=== PATIENT | male | born 2000 | race Caucasian/White ===

== ENCOUNTER 2020-11-29 14:29 | Emergency (ER) | payer OTHER, SELFPAY ==
[2020-11-29 14:49] VITALS: BP 136/80; PULSE 74; RESP 18; TEMP 36.1; O2SAT 100; BMI 19.2
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
== END 2020-11-29 17:45 | disposition home or self-care (01) ==
PROVIDERS: Emergency Provider Internal Medicine; PCP Internal Medicine
DX: Z48.02 Encounter for removal of sutures (principal); Z79.899 Other long term (current) drug therapy
CPT/HCPCS: 99283

== ENCOUNTER 2021-09-12 15:23 | Emergency (ER) | payer OTHER, SELFPAY ==
[2021-09-12 15:37] VITALS: BP 119/72; BP 124/82; PULSE 110; PULSE 87; RESP 16; TEMP 36.9; O2SAT 98; O2SAT 99
--- NOTE | 2021-09-12 15:41 | ED.GENADULT ---
HPI - General Adult General Chief complaint: General Medical Stated complaint: ? DVT INFECTION Time Seen by Provider: 09/12/21 15:41 Source: patient History of Present Illness HPI narrative: Patient IVDA user complaining of back pain leg pain for last 6 days IV drug user no fever no chills Related Data Previous Rx's Medication Instructions Recorded bacitracin 500 unit/gram topical 1 appl TOPICAL BID #30 g 11/29/20 ointment Allergies Allergy/AdvReac Type Severity Reaction Status Date / Time No Known Allergies Allergy Verified 09/14/21 09:02 [No Known Allergies*] Review of Systems Review of Systems: Yes all other systems are reviewed and are negative PMFSH Past Medical History Medical History No known health problems Social History Social History Alcohol intake: current Alcohol intake frequency: 3 or more drinks per day Alcohol type: hard liquor Patient Tobacco Use Status: Current everyday Tobacco user Smoked in Last 30 Days: Yes Use of substances other than those prescribed or required for medical reasons: Yes Substance Use Type: Amphetamines, Crack/Cocaine, Heroin and IV Drugs Advance Directives: No Advance Directives Information Provided: No Physical Exam ED Vital Signs: Vital Signs - 24 hr 09/12/21 15:37 Temperature 98.5 F Pulse Rate 87 Respiratory Rate 16 Blood Pressure 119/72 Pulse Oximetry 98 BMI result Body Mass Index 20.0 Appearance: Alert. Oriented X3. No acute distress. ENT: Pharynx normal. Oral Mucosa moist Neck: Normal inspection. Neck supple. CVS: Normal heart rate and rhythm. Pulses normal. Respiratory: No respiratory distress. Equal air entry bilateral, no wheezing/rales/rhonchi Abdomen: Soft and nontender. Bowel sounds are present, no mass palpable, no CVA tenderness Skin: Skin warm and dry. Normal skin color. Normal skin turgor. Extremities: No lower extremity edema. No calf tenderness Back: No focal percussion spinal tenderness diffuse paraspinal tenderness mostly on the left side good range of movement ambulation Neuro: Oriented X 3. No motor deficit. No sensory deficit.No cerebellar signs , cranial nerves II-XII intact Medical Decision Making MDM Narrative Medical decision making narrative: Patient refused lab left against medical advice Discharge Plan Discharge Clinical Impression: Musculoskeletal pain Patient Disposition: Left Against Medical Advice Prescriptions: No Action bacitracin 500 unit/gram ointment 1 appl topical BID Qty: 30 0RF Stand Alone Forms: Against Medical Advice Interventions: ED Discharge Assessment Last Done: 09/12/21 16:37 Discharge Date/Time: 09/12/21 16:37
== END 2021-09-12 16:37 | disposition left against medical advice (07) ==
LOC: HO.ED 16:34
PROVIDERS: Emergency Provider Internal Medicine
DX: M79.10 Myalgia, unspecified site (principal); F19.10 Other psychoactive substance abuse, uncomplicated; F17.200 Nicotine dependence, unspecified, uncomplicated
CPT/HCPCS: 99283

== ENCOUNTER 2021-10-28 15:32 | Emergency (ER) | payer OTHER, SELFPAY ==
[2021-10-28 16:00] VITALS: BP 131/76; PULSE 125; RESP 19; TEMP 36.6; O2SAT 98; BMI 19.9
--- NOTE | 2021-10-28 16:10 | ECG_ITS ---
Test Reason : TACHYCARDIA Blood Pressure : / mmHG Vent. Rate : 108 BPM Atrial Rate : 108 BPM P-R Int : 148 ms QRS Dur : 086 ms QT Int : 338 ms P-R-T Axes : 066 086 052 degrees QTc Int : 452 ms Sinus tachycardia Otherwise normal ECG No previous ECGs available Referred By: Generic ED Physician Electronically Signed By:Lonnie Velazquez
--- NOTE | 2021-10-28 17:41 | ED.GENADULT ---
HPI - General Adult General Chief complaint: General Medical Stated complaint: Right arm numbness Time Seen by Provider: 10/28/21 17:41 Source: patient Mode of arrival: ambulatory Limitations: no limitations History of Present Illness HPI narrative: Patient with history of IV cocaine use injected cocaine the right forearm earlier and notice numbness of the right forearm. Lasted for few minutes gone now no weakness no other complaints as such patient does not want any help to stop using cocaine was a detox 2 days ago. No chest pain at this time no shortness of breath Related Data Previous Rx's Medication Instructions Recorded bacitracin 500 unit/gram topical 1 appl TOPICAL BID #30 g 11/29/20 ointment Allergies Allergy/AdvReac Type Severity Reaction Status Date / Time No Known Allergies Allergy Verified 09/14/21 09:02 [No Known Allergies*] Review of Systems Review of Systems: Yes all other systems are reviewed and are negative [facility] Past Medical History Medical History No known health problems Social History Social History Alcohol intake: current Alcohol intake frequency: 3 or more drinks per day Alcohol type: hard liquor Patient Tobacco Use Status: Current everyday Tobacco user Substance Use Type: Amphetamines, Crack/Cocaine, Heroin and IV Drugs Advance Directives: No Advance Directives Information Provided: No Physical Exam ED Vital Signs: Vital Signs - 24 hr 10/28/21 16:00 Temperature 98 F Pulse Rate 125 H Respiratory Rate 19 Blood Pressure 131/76 Pulse Oximetry 98 BMI result Body Mass Index 19.9 Appearance: Alert. Oriented X3. No acute distress. ENT: Pharynx normal. Oral Mucosa moist Neck: Normal inspection. Neck supple. CVS: Normal heart rate and rhythm. Pulses normal. Respiratory: No respiratory distress. Equal air entry bilateral, Abdomen: Soft and nontender. Bowel sounds are present, Skin: Skin warm and dry. Normal skin color. Normal skin turgor. Extremities: No lower extremity edema. No calf tenderness IVDA gomez bilateral arms Neuro: Oriented X 3. No motor deficit. No sensory deficit.No cerebellar signs , cranial nerves II-XII intact deep tendon reflexes 2+ bilateral Medical Decision Making [facility] Narrative Medical decision making narrative: Patient nonspecific numbness of the right forearm on examination there was no sensory deficit or motor deficit deep tendon reflexes are normal no other active complaints at this time will discharge patient home patient does not want to go to detox at this time Discharge Plan Discharge Clinical Impression: Arm paresthesia, right, Cocaine abuse Patient Disposition: Home, Self-Care Instructions: Cocaine Abuse (ED), Paresthesia (ED) Additional Instructions: Stop using cocaine Follow with PCP Report to ER daphney weakness of the right arm Prescriptions: No Action bacitracin 500 unit/gram ointment 1 appl topical BID Qty: 30 0RF
[2021-10-28 17:55] VITALS: BP 129/81; PULSE 112; RESP 16; TEMP 37.2; O2SAT 100
== END 2021-10-28 19:00 | disposition home or self-care (01) ==
PROVIDERS: Emergency Provider Internal Medicine
DX: R20.0 Anesthesia of skin (principal); F14.10 Cocaine abuse, uncomplicated; F11.10 Opioid abuse, uncomplicated; F17.200 Nicotine dependence, unspecified, uncomplicated; Z71.6 Tobacco abuse counseling; Z71.51 Drug abuse counseling and surveillance of drug abuser
CPT/HCPCS: 93005; 99283

== ENCOUNTER 2021-11-26 21:56 | Emergency (ER) | payer OTHER, SELFPAY ==
[2021-11-26 22:10] VITALS: BP 127/73; PULSE 84; O2SAT 99
[2021-11-26 22:16] VITALS: BP 127/73; PULSE 84; O2SAT 99
== END 2021-11-26 22:30 | disposition left against medical advice (07) ==
LOC: HO.ED 22:21
PROVIDERS: Emergency Provider Emergency Medicine
DX: T50.901A Poisoning by unspecified drugs, medicaments and biological substances, accidental (unintentional), initial encounter (principal); Y92.9 Unspecified place or not applicable

== ENCOUNTER 2022-01-26 12:57 | Emergency (ER) | payer OTHER, SELFPAY ==
[2022-01-26 13:36] VITALS: BP 120/74; PULSE 77; RESP 18; TEMP 36.6; O2SAT 99; BMI 17.2
== END 2022-01-26 14:48 | disposition left against medical advice (07) ==
PROVIDERS: Emergency Provider Emergency Medicine
DX: L03.012 Cellulitis of left finger (principal)
CPT/HCPCS: 99281

== ENCOUNTER 2022-02-03 13:38 | Inpatient (IN) | payer OTHER, SELFPAY ==
--- NOTE | ~2022-02-03 | US_ITS ---
EXAMINATION: ULTRASOUND EXTREMITY NONVASCULAR CLINICAL INFORMATION: Redness and pain. Rule out abscess. COMPARISON: None TECHNIQUE: Grayscale and color imaging of the left anterior lower thigh using a linear transducer FINDINGS: There is edematous change of the soft tissues. No focal fluid collection/abscess is seen. US/US extremity nonvascular IMPRESSION: No abscess seen.
--- NOTE | ~2022-02-03 | XR_ITS ---
EXAMINATION: XR CHEST CLINICAL INFORMATION: Cough COMPARISON: None TECHNIQUE: Frontal view of the chest was obtained. FINDINGS: No significant abnormality is noted involving the heart, lungs, mediastinum, bony thorax or soft tissues. XR/XR chest 1V IMPRESSION: Unremarkable examination.
--- NOTE | ~2022-02-03 | CT_ITS ---
EXAMINATION: CT LEFT FEMUR WITH IV CONTRAST CLINICAL INFORMATION: Febrile, history of intravenous drug use. COMPARISON: Left lower extremity from earlier today. TECHNIQUE: Contiguous axial imaging was performed of the left lower extremity following the administration of 85 mL of Omnipaque 350 intravenously. Coronal and sagittal reformats were obtained at the acquisition workstation. FINDINGS: No evidence of acute fractures or malalignment. No cortical disruption or erosions to suspect osteomyelitis. No aggressive-appearing tortious lesion. Soft tissue swelling predominantly along the anterior surface of the distal thigh. No drainable collection or abscess formation. No unexpected radiopaque foreign bodies. No acute vascular abnormality. CT/CT femur LT w con IMPRESSION: 1. No drainable collection or abscess formation. 2. No unexpected radiopaque foreign bodies or subcutaneous air. 3. No acute osseous fractures or malalignment. 4. No cortical disruption or erosive bony changes to suspect osteomyelitis.
[2022-02-03 13:52] VITALS: BP 102/64; PULSE 68; O2SAT 93
[2022-02-03 14:30] VITALS: BP 107/66; PULSE 88; RESP 19; TEMP 37.7; O2SAT 98; BMI 17.9
[2022-02-03 21:38] VITALS: BP 113/66; PULSE 84; RESP 16; TEMP 38.4; O2SAT 100
--- NOTE | 2022-02-03 22:03 | ED.LOWEXIN ---
HPI - Extremity Injury (Lower) General Chief Complaint: Extremity Injury, Lower Stated Complaint: leg pain Time Seen by Provider: 02/03/22 21:59 Source: patient Mode of arrival: EMS History of Present Illness HPI Narrative: 21-year-old male, history of hep C and current IVDA user presents with onset anterior left thigh pain with redness since this morning he denies any trauma and states that he does woke up and it was like that. He otherwise denies any shortness of breath, chest pain / palpitations, back pain, GI or symptoms and denies any fever but states he has been having chills. Related Data Previous Rx's Medication Instructions Recorded bacitracin 500 unit/gram topical 1 appl topical BID #30 grams 11/29/20 ointment Allergies Allergy/AdvReac Type Severity Reaction Status Date / Time No Known Allergies Allergy Verified 09/14/21 09:02 [No Known Allergies*] Review of Systems Review of Systems: Pertinent positives and negatives as stated in HPI 10 point review of systems is otherwise negative. PMFSH Past Medical History Source: nursing notes reviewed Medical History No known health problems Social History Social History Alcohol intake: current Alcohol intake frequency: 3 or more drinks per day Alcohol type: hard liquor Patient Tobacco Use Status: Current everyday Tobacco user Substance Use Type: Amphetamines, Crack/Cocaine, Heroin and IV Drugs Advance Directives: No Advance Directives Information Provided: Yes Physical Exam Vital Signs: Vital Signs: Last Vital Signs Temp 101.1 F H 02/03/22 21:38 Pulse 84 02/03/22 21:38 Resp 16 02/03/22 21:38 BP 113/66 02/03/22 21:38 Pulse Ox 100 02/03/22 21:38 O2 Del Method 02/03/22 21:38 BMI result Body Mass Index 17.9 VITAL SIGNS: Reviewed. GENERAL: Unkempt, well nourished, in no acute distress. HEAD: Normocephalic/atraumatic EYES: PERRLA, EOMI EARS: Ext canals without abnormality OROPHARYNX: no oral lesions noted, posterior pharynx LUNGS: Normal breath sounds. No adventitious sounds or accessory muscle use. SpO2<100> CARDIOVASCULAR: Regular rate and rhythm without noted murmurs, no JVD or lower extremity edema. ABDOMEN: Soft, non-tender, non-distended with bowel sounds. BACK: There is no midline vertebral tenderness on palpation, no step-offs, no erythema MUSCULOSKELETAL: No tenderness, deformities, or effusions noted on gross inspection. EXTREMITIES: No cyanosis, clubbing or edema; LEFT LOWER EXTREMITY: 4x8 erythematous area without induration on the anterior aspect the left thigh without fluctuance, but highly painful; chronic track gomez noted to bilateral upper extremities, on viewing the feet there is evidence blistering associated with shoes and walking SKIN: Inspection of the skin reveals no rashes, ulcerations, jaundice, pallor, or petechiae. NEUROLOGIC: Alert and oriented x 4. Strength and sensation to light touch were grossly intact x 4. Course Course Course Narrative: 2200: 21-year-old male with history and clinical presentation suggestive of possible infection at the LEFT thigh but on review of ultrasound results there is no evidence of abscess. Lactic acid/blood cultures/antibiotics completed. Review of all investigations consistent with cellulitis, there were concerns for possible intramuscular abscess however on review of CT scan no evidence to further support this. There still remains the possibility endocarditis although murmur was not appreciated. I discussed the case with the inpatient hospitalist who accepts admission MDM - Extremity Injury (Lower) Lab Data Result diagrams: 02/03/22 22:23 02/03/22 22:23 Labs: Lab Results 02/03/22 02/03/22 02/03/22 Range/Units 22:13 22:23 22:23 WBC 20.9 H (4.8-10.8) X10*3/uL RBC 4.26 L (4.60-5.80) X10*6/uL Hgb 13.0 L (14.0-18.0) g/dl Hct 37.6 L (42.0-52.0) % MCV 88.3 (80.0-98.0) fL MCH 30.5 (27.0-33.0) pg MCHC 34.6 (31.0-36.0) g/dl RDW 12.3 (11.0-16.0) % Plt Count 338 (160-400) X10*3/uL MPV 9.3 L (9.4-12.4) fL Immature Gran % (Auto) 0.5 H (0.0-0.4) % Neut % (Auto) 69.7 (45-73) % Lymph % (Auto) 21.9 (20-40) % [place] % (Auto) 7.7 (2-11) % Eos % (Auto) 0.0 (0-4) % Baso % (Auto) 0.2 (0-2) % Lymph # (Auto) 4.6 (1.2-4.9) X10*3/uL [place] # (Auto) 1.6 H (0.1-1.2) X10*3/uL Eos # (Auto) 0.0 (0.0-0.4) X10*3/uL Baso # (Auto) 0.0 (0.0-0.2) X10*3/uL Abs Immat Gran (auto) 0.11 H (0.00-0.03) X10*3/uL Absolute Neuts (auto) 14.6 H (2.0-8.3) x10*3/uL Absolute Nucleated RBC 0.000 (0.0-0.012) X10*3/uL Nucleated RBC % (auto) 0.0 (0.0-0.2) /100WBC Smear Tech's Comments VERIFIED D-Dimer High Sensitivty NG/ML Sodium 133 L (135-145) mmol/L Potassium 3.6 (3.3-5.1) mmol/L Chloride 97 (96-108) mmol/L Carbon Dioxide 27 (22-29) mmol/L Anion Gap 13 (12-20) BUN 16 (9-16) mg/dL Creatinine 0.76 (0.5-1.4) mg/dL Estim Creat Clear Calc 121.2 Estimated GFR > 60 Random Glucose 113 (60-115) mg/dL Lactic Acid (0.5-2.0) mmol/L Calcium 8.6 (8.4-10.2) mg/dL Total Bilirubin 1.0 (0.0-1.0) mg/dL Direct Bilirubin 0.5 (0.0-0.5) mg/dL AST 29 (5-37) U/L ALT 44 H (0-40) U/L Alkaline Phosphatase 70 (39-117) U/L C-Reactive Protein 5.67 H (< or = 0.50) mg/dL Total Protein 6.9 (6.5-8.0) g/dL Albumin 3.8 (3.5-5.0) g/dL Lipase 51 (8-78) U/L Procalcitonin ng/mL COVID-19 (JROGE A) Negative (Negative) COVID-19 Clin Com See Note 02/03/22 02/03/22 02/03/22 Range/Units 22:23 22:23 22:23 WBC (4.8-10.8) X10*3/uL RBC (4.60-5.80) X10*6/uL Hgb (14.0-18.0) g/dl Hct (42.0-52.0) % MCV (80.0-98.0) fL MCH (27.0-33.0) pg MCHC (31.0-36.0) g/dl RDW (11.0-16.0) % Plt Count (160-400) X10*3/uL MPV (9.4-12.4) fL Immature Gran % (Auto) (0.0-0.4) % Neut % (Auto) (45-73) % Lymph % (Auto) (20-40) % [place] % (Auto) (2-11) % Eos % (Auto) (0-4) % Baso % (Auto) (0-2) % Lymph # (Auto) (1.2-4.9) X10*3/uL [place] # (Auto) (0.1-1.2) X10*3/uL Eos # (Auto) (0.0-0.4) X10*3/uL Baso # (Auto) (0.0-0.2) X10*3/uL Abs Immat Gran (auto) (0.00-0.03) X10*3/uL Absolute Neuts (auto) (2.0-8.3) x10*3/uL Absolute Nucleated RBC (0.0-0.012) X10*3/uL Nucleated RBC % (auto) (0.0-0.2) /100WBC Smear Tech's Comments D-Dimer High Sensitivty < 150 NG/ML Sodium (135-145) mmol/L Potassium (3.3-5.1) mmol/L Chloride (96-108) mmol/L Carbon Dioxide (22-29) mmol/L Anion Gap (12-20) BUN (9-16) mg/dL Creatinine (0.5-1.4) mg/dL Estim Creat Clear Calc Estimated GFR Random Glucose (60-115) mg/dL Lactic Acid 1.1 (0.5-2.0) mmol/L Calcium (8.4-10.2) mg/dL Total Bilirubin (0.0-1.0) mg/dL Direct Bilirubin (0.0-0.5) mg/dL AST (5-37) U/L ALT (0-40) U/L Alkaline Phosphatase (39-117) U/L C-Reactive Protein (< or = 0.50) mg/dL Total Protein (6.5-8.0) g/dL Albumin (3.5-5.0) g/dL Lipase (8-78) U/L Procalcitonin 0.16 ng/mL COVID-19 (JORGE A) (Negative) COVID-19 Clin Com Discharge Plan Discharge Clinical Impression: Cellulitis, Sepsis, Polysubstance use disorder Patient Disposition: Admitted As Inpatient Prescriptions: No Action bacitracin 500 unit/gram ointment 1 appl topical BID Qty: 30 0RF
[2022-02-03] MEDS: Acetaminophen 325 MG TABLET 975 MG PO (22:28)
[2022-02-03 22:32] LABS: Basophils Percent Auto 0.2 % (0-2); Hematocrit 37.6 % (42.0-52.0); Imm Gran Abs Auto 0.11 X10*3/uL (0.00-0.03); Imm Gran Pct Auto 0.5 % (0.0-0.4); Lymphocytes Absolute Auto 4.6 X10*3/uL (1.2-4.9); Lymphocytes Percent Auto 21.9 % (20-40); MANUAL DIFF FLAG SCAN; Mean Corpuscular HGB Conc 34.6 g/dl (31.0-36.0); Mean Corpuscular Hemoglobin 30.5 pg (27.0-33.0); Mean Corpuscular Volume 88.3 fL (80.0-98.0); Mean Platelet Volume 9.3 fL (9.4-12.4); Monocytes Absolute Auto 1.6 X10*3/uL (0.1-1.2); Monocytes Percent Auto 7.7 % (2-11); Neutrophils Absolute Auto 14.6 x10*3/uL (2.0-8.3); Neutrophils Percent Auto 69.7 % (45-73); Platelet Count 338 X10*3/uL (160-400); Red Blood Count 4.26 X10*6/uL (4.60-5.80); Red Cell Distribution Width 12.3 % (11.0-16.0); SCAN SMEAR FLAG 1; White Blood Count 20.9 X10*3/uL (4.8-10.8)
[2022-02-03 22:33] LABS: SLIDE REVIEW VERIFIED
[2022-02-03 22:41] LABS: Lactic Acid 1.1 mmol/L (0.5-2.0)
[2022-02-03 22:43] VITALS: TEMP 37.8
[2022-02-03 22:44] LABS: Anion Gap 13 (12-20); Blood Urea Nitrogen 16 mg/dL (9-16); Calcium 8.6 mg/dL (8.4-10.2); Carbon Dioxide 27 mmol/L (22-29); Chloride 97 mmol/L (96-108); Creatinine Clr Calc Pharmacy 121.2; Estimated Glomerular Filt Rate > 60; Glucose Random 113 mg/dL (60-115); Potassium 3.6 mmol/L (3.3-5.1); Sodium 133 mmol/L (135-145)
[2022-02-03 22:45] LABS: COVID-19 Test Negative (Negative)
[2022-02-03 22:52] LABS: D Dimer High Sensitivity < 150 NG/ML
[2022-02-03] MEDS: hydrOXYzine HCL 50 MG TABLET PO (23:04)
[2022-02-03] MEDS: Piperacillin Sodium/Tazobactam 3.375 GM in 0.9 % Sodium Chloride 50 ML IV (23:05)
[2022-02-03 23:31] LABS: Alanine Aminotransferase 44 U/L (0-40); Albumin Level 3.8 g/dL (3.5-5.0); Alkaline Phosphatase 70 U/L (39-117); Aspartate Amino Transferase 29 U/L (5-37); Bilirubin Direct 0.5 mg/dL (0.0-0.5); C Reactive Protein 5.67 mg/dL (< or = 0.50); Lipase 51 U/L (8-78); Total Protein 6.9 g/dL (6.5-8.0)
[2022-02-03 23:50] LABS: Procalcitonin 0.16 ng/mL
[2022-02-03] MEDS: iohexoL 350 MG/ML 100 ML INFUS..BTL 85 ML IV (23:50)
--- NOTE | 2022-02-04 01:05 | PM.IMHP ---
History of Present Illness Date of Service: 02/04/22 Chief Complaint: Swollen painful red leg 21-year-old male with past medical history of IV drug use who presents to the hospital with complaints left leg swelling and pain. Patient reports that started the day prior, progressively worsened with being pattern of time. Patient reports injecting drugs but not in his leg. Patient reports fever and chills, he reports that he is now withdrawing opioids, uses heroin last use last night. Patient denies any chest pain, no shortness of breath, no abdominal pain nausea or vomiting, no diarrhea constipation, no urinary symptoms and no lower extremity edema On arrival To patient hemodynamically stable but had a fever of 101. One Labs are significant for WBC count 20.9, hemoglobin 13 sodium of 133, otherwise unremarkable Given the history of IV drug use, leukocytosis and fever patient will be admitted for further management Review of Systems Review of Systems: Yes all other systems are reviewed and are negative [facility] Medical History IV drug abuse No known health problems Family History (Updated 02/04/22 @ 05:38 by Kimberly Rodriguez MD) Other No family history of coronary artery disease Surgical History (Updated 02/04/22 @ 05:38 by Kimberly Rodriguez MD) No pertinent past surgical history Social History Alcohol intake: current Alcohol intake frequency: 3 or more drinks per day Alcohol type: hard liquor Patient Tobacco Use Status: Current everyday Tobacco user Smoked in Last 30 Days: Yes Use of substances other than those prescribed or required for medical reasons: Yes Substance Use Type: Amphetamines, Crack/Cocaine, Heroin and IV Drugs Advance Directives: No Advance Directives Information Provided: Yes Meds Allergies Allergy/AdvReac Type Severity Reaction Status Date / Time No Known Allergies Allergy Verified 09/14/21 09:02 [No Known Allergies*] Physical Exam Vital Signs and Narrative: Vital Signs: Last Vital Signs Temp 101.1 F H 02/03/22 21:38 Pulse 84 02/03/22 21:38 Resp 16 02/03/22 21:38 BP 113/66 02/03/22 21:38 Pulse Ox 100 02/03/22 21:38 O2 Del Method 02/03/22 21:38 BMI result Body Mass Index 17.9 Const: General: cooperative and no acute distress Orientation/consciousness: patient oriented x3 Eyes: General: appearance normal, both eyes and all related structures Resp: Effort & Inspection: normal respiratory effort Auscultation: clear to auscultation bilaterally Cardio: Rate: regular rate Rhythm: regular rhythm GI: Palpation (GI): Soft to palpation Auscultation: normal bowel sounds Skin: Other: Left thigh just above the knee erythema, swollen, tenderness with warm Neuro: General: patient oriented x3 Cognition (Neuro): normal cognition Extrem: General: Yes normal to inspection and Yes no pedal edema Results Labs CBC and Chem 7: 02/03/22 22:23 02/03/22 22:23 Labs: Laboratory Results - last 24 hr 02/03/22 02/03/22 02/03/22 22:13 22:23 22:23 MCV 88.3 MCH 30.5 MCHC 34.6 RDW 12.3 Plt Count 338 MPV 9.3 L Immature Gran % (Auto) 0.5 H Neut % (Auto) 69.7 Lymph % (Auto) 21.9 [place] % (Auto) 7.7 Eos % (Auto) 0.0 Baso % (Auto) 0.2 Lymph # (Auto) 4.6 [place] # (Auto) 1.6 H Eos # (Auto) 0.0 Baso # (Auto) 0.0 Abs Immat Gran (auto) 0.11 H Absolute Neuts (auto) 14.6 H Absolute Nucleated RBC 0.000 Nucleated RBC % (auto) 0.0 Smear Tech's Comments VERIFIED D-Dimer High Sensitivty Anion Gap 13 Estim Creat Clear Calc 121.2 Estimated GFR > 60 Random Glucose 113 Lactic Acid Calcium 8.6 Total Bilirubin 1.0 Direct Bilirubin 0.5 AST 29 ALT 44 H Alkaline Phosphatase 70 C-Reactive Protein 5.67 H Total Protein 6.9 Albumin 3.8 Lipase 51 Procalcitonin COVID-19 (JORGE A) Negative COVID-19 Clin Com See Note 02/03/22 02/03/22 02/03/22 22:23 22:23 22:23 MCV MCH MCHC RDW Plt Count MPV Immature Gran % (Auto) Neut % (Auto) Lymph % (Auto) [place] % (Auto) Eos % (Auto) Baso % (Auto) Lymph # (Auto) [place] # (Auto) Eos # (Auto) Baso # (Auto) Abs Immat Gran (auto) Absolute Neuts (auto) Absolute Nucleated RBC Nucleated RBC % (auto) Smear Tech's Comments D-Dimer High Sensitivty < 150 Anion Gap Estim Creat Clear Calc Estimated GFR Random Glucose Lactic Acid 1.1 Calcium Total Bilirubin Direct Bilirubin AST ALT Alkaline Phosphatase C-Reactive Protein Total Protein Albumin Lipase Procalcitonin 0.16 COVID-19 (JORGE A) COVID-19 Clin Com Imaging Radiologist's Impressions: Impressions Extremity Ultrasound 02/03/22 15:11 IMPRESSION: No abscess seen. Chest X-Ray 02/03/22 22:35 IMPRESSION: Unremarkable examination. Femur CT 02/03/22 23:40 IMPRESSION: 1. No drainable collection or abscess formation. 2. No unexpected radiopaque foreign bodies or subcutaneous air. 3. No acute osseous fractures or malalignment. 4. No cortical disruption or erosive bony changes to suspect osteomyelitis. Assessment and Plan (1) Cellulitis: Status: Acute (2) Sepsis: Status: Acute (3) Polysubstance use disorder: Status: Acute Plan 21-year-old male with past medical history of IV drug use who presents to the hospital with complaints of left swollen leg found to have sepsis # sepsis - likely secondary to cellulitis -patient has leukocytosis, as well as febrile - lactic acid normal - share with other review antibiotics - follow cultures # cellulitis - as warmth, tenderness, erythema, edema, - will treat with IV antibiotic given the leukocytosis and fever - follow cultures # will substance abuse including alcohol as well as IV drug abuse - reports last drink was last night, he drinks multiple beers and multiple nebs daily - will start patient on phenobarb - folic acid and thiamine - clonidine p.r.n. for withdrawal symptoms DVT prophylaxis: Lovenox Given his history of IV drug use, and evidence of sepsis, patient will require minimal hospital stay of 2 nitro further management and monitoring Quality Stroke Does the patient have a stroke diagnosis?: No VTE Prior VTE?: No VTE Risk Level:: Medical - moderate - high VTE Device Contraindication: Treatment Not Indicated VTE Drug Contraindication: N/A - Med Ordered
[2022-02-04 01:22] VITALS: TEMP 36.6
[2022-02-04] MEDS: Thiamine HCL 100 MG TABLET PO ×2 (01:28→10:16)
[2022-02-04] MEDS: LORazepam 1 MG TABLET 2 MG PO (01:28)
[2022-02-04] MEDS: ceFAZolin Sodium/Dextrose,Iso 2 GM/50 ML PIGGYBACK IV ×3 (01:28→16:40)
[2022-02-04] MEDS: Folic Acid 1 MG TABLET PO ×2 (01:28→10:16)
[2022-02-04] MEDS: Lactated Ringers 1,000 ML 50 ML IVCONT ×2 (02:20→22:06)
--- NOTE | 2022-02-04 04:37 | PC.NURSE ---
pt sleeping comfortably on stetcher, equal chest rise and fall. NAD. will continue to monitor closely
[2022-02-04] MEDS: LORazepam 1 MG TABLET PO ×5 (04:57→22:37)
--- NOTE | 2022-02-04 04:57 | PC.NURSE ---
pt standing up at bedside unsteadily asking to use the BR. pt asked if was steady on his feet to which he said no. wheelchair obtained for transfer of pt from bed to BR. pt able to stand to void, and ended up voiding on the ground/in the toilet. pt c/o leg pain during transfer. pillow given to patient who is resting in bed at this time
[2022-02-04 05:40] LABS: Appearance Urine CLEAR; Color Urine YELLOW; Glucose Urine UA NEG (NEG); Leukocyte Esterase Urine NEG (NEG); Nitrite Urine NEG (NEG); Urine Blood NEG (NEG); Urine Ketones NEG (NEG); Urine Protein NEG (NEG-TRACE)
[2022-02-04 07:41] LABS: MANUAL DIFF FLAG NO
[2022-02-04 07:46] LABS: Basophils Percent Auto 0.2 % (0-2); Eosinophils Percent Auto 0.2 % (0-4); Hematocrit 36.7 % (42.0-52.0); Hemoglobin 12.3 g/dl (14.0-18.0); Imm Gran Abs Auto 0.09 X10*3/uL (0.00-0.03); Imm Gran Pct Auto 0.5 % (0.0-0.4); Lymphocytes Absolute Auto 2.6 X10*3/uL (1.2-4.9); Lymphocytes Percent Auto 14.3 % (20-40); Mean Corpuscular HGB Conc 33.5 g/dl (31.0-36.0); Mean Corpuscular Hemoglobin 29.9 pg (27.0-33.0); Mean Corpuscular Volume 89.3 fL (80.0-98.0); Mean Platelet Volume 9.3 fL (9.4-12.4); Monocytes Absolute Auto 1.5 X10*3/uL (0.1-1.2); Monocytes Percent Auto 8.1 % (2-11); Neutrophils Absolute Auto 13.8 x10*3/uL (2.0-8.3); Neutrophils Percent Auto 76.7 % (45-73); Platelet Count 316 X10*3/uL (160-400); Red Blood Count 4.11 X10*6/uL (4.60-5.80); Red Cell Distribution Width 12.5 % (11.0-16.0)
[2022-02-04 08:01] LABS: Anion Gap 11 (12-20); Blood Urea Nitrogen 13 mg/dL (9-16); Calcium 8.4 mg/dL (8.4-10.2); Carbon Dioxide 25 mmol/L (22-29); Chloride 101 mmol/L (96-108); Creatinine Clr Calc Pharmacy 129.7; Estimated Glomerular Filt Rate > 60; Glucose Random 117 mg/dL (60-115); Sodium 133 mmol/L (135-145)
[2022-02-04] MEDS: 0.9 % Sodium Chloride Flush 3 ML SYRINGE IVFLUSH ×2 (10:16→20:16)
--- NOTE | 2022-02-04 10:19 | PHA.MEDREC ---
Pharmacy Consult ? Medication Reconciliation Pharmacy has completed the medication reconciliation. Patient reports no medications at home. Diane Ferguson, DruD
[2022-02-04 10:26] LABS: Syphilis Screen Nonreactive (Nonreactive)
--- NOTE | 2022-02-04 11:28 | PM.EVENT ---
Event Note Date of Service: 02/04/22 Event Note: The patient was seen and evaluated this morning Complaining of pain in his left thigh WBCs trending down Continue IV antibiotics pending final culture Start Vancomycin along the Cefazolin Addiction team to evaluate the patient
--- NOTE | 2022-02-04 12:01 | PHA.PROG ---
Admission Date/Time: February 04, 2022 01:00 Indication: Sepsis due to cellulitis Weight in k.699 kg Adjusted body weight in K.48 kg [place] body weight in K kg Obesity Dosing Indication % IBW: N/A Serum Creatinine - Last 168 Hours 02/03/22 02/04/22 22:23 07:36 Creatinine 0.76 0.71 Estimated CrCl and GFR - Last 168 Hours 02/03/22 02/04/22 22:23 07:36 Estim Creat Clear Calc 121.2 129.7 Estimated GFR > 60 > 60 Vancomycin Loading Dose: 1500 mg (26 mg/kg) Current Vancomycin Dosing Regimen: 1250 mg Q12H Date and Time for next Vancomycin Level to be drawn: 02/05 @ 2130 Pharmacist Comments on Vancomycin Plan: Patient schedule to receive loading dose vancomycin 1500 mg in the ED 02/04 @ 1200 Maintenance dose vancomycin 1250 mg Q12H to begin 02/06 @ 0000. Expected AUC 520 with a trough of 14.1. Trough to be drawn prior to 4th dose Pharmacy to monitor renal function daily Diane Ferguson PharmD Vancomycin dosing will take advantage of [employer] as a clinical decision support tool that uses Bayesian modeling to calculate individual patient's pharmacokinetic parameters and forecast the patient's drug concentration time course with the target goal AUC 24 range of 400 - 600 mg/L/hr.
[2022-02-04] MEDS: methADONE HCl 20 MG/2 ML ORAL.CONC 15 MG PO (13:16)
[2022-02-04] MEDS: vancomycin HCL 1,500 MG in 0.9 % Sodium Chloride 500 ML 333.33 MG IV (13:16)
[2022-02-04 14:54] VITALS: BP 110/65; PULSE 74; RESP 14; TEMP 37.9; O2SAT 100
--- NOTE | 2022-02-04 15:35 | MHC.CM.PN ---
Meet with patient for CM assessment. See CM assessment for details. Homeless for ~6 months, [place] No PCP. Patient stating he wants to leave AMA if he can't get a strategic client executive that was reportedly taken away in the ER.
[2022-02-04 16:00] VITALS: BP 108/55; PULSE 75; RESP 18; TEMP 37.1; O2SAT 96
--- NOTE | 2022-02-04 17:13 | HO.ADDICTCON ---
History of Present Illness Date of Service: 02/04/2022 Chief Complaint: cellulitis Reason for Consult: OUD HPI Narrative: Patient is a 21 year old male currently medically admitted with cellulitis. Reporting IVDU--cpnsult requested to eval and treat. Patient seen X2 by this telegraphic typewriter operator chief and RSN. 1st time seen in main ED while he was awaiting room. Patient reporting that he recently started using heroin (in Nov, 2021). 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 He reports using btwn 5-10bags daily and drinks alcohol as well--unclear how much. At initial interview reporting withdrawal sx including chills, back and body aches, runny nose. Methadone 15mg ordered to address withdrawal sx. Patient seen in follow up 2 hours after medication received, he was now in room 350. Eyes closed, but answering questions, intitially stating he did in't know if he felt better, but upon further questioning, he acknowledged he was feeling better. Attempted to discuss plan for medications moving forward as methadone not appropriate option due to patient not having dx of OUD for at least a year. Challenging to engage patient in this as he was requesting this telegraphic typewriter operator chief find and bring up items that he believes he left in the ED. Review of Systems Constitutional: Reports as per HPI Diagnostics Vital Signs (24Hr): Vital Signs - 24 hr 02/03/22 21:38 02/03/22 22:43 02/04/22 01:22 Temperature 101.1 F H 100.1 F 97.9 F Pulse Rate 84 Respiratory Rate 16 Blood Pressure 113/66 Pulse Oximetry 100 Oxygen Delivery Method Room Air 02/04/22 14:54 02/04/22 16:00 Temperature 100.3 F 98.7 F Pulse Rate 74 75 Respiratory Rate 14 18 Blood Pressure 110/65 108/55 L Pulse Oximetry 100 96 Oxygen Delivery Method Room Air Room Air BMI result Body Mass Index 17.9 Labs Results: 02/04/22 07:36 02/04/22 07:36 Labs: Laboratory Results - last 48 hr 02/03/22 02/03/22 02/03/22 22:13 22:23 22:23 WBC 20.9 H RBC 4.26 L Hgb 13.0 L Hct 37.6 L MCV 88.3 MCH 30.5 MCHC 34.6 RDW 12.3 Plt Count 338 MPV 9.3 L Immature Gran % (Auto) 0.5 H Neut % (Auto) 69.7 Lymph % (Auto) 21.9 [place] % (Auto) 7.7 Eos % (Auto) 0.0 Baso % (Auto) 0.2 Lymph # (Auto) 4.6 [place] # (Auto) 1.6 H Eos # (Auto) 0.0 Baso # (Auto) 0.0 Abs Immat Gran (auto) 0.11 H Absolute Neuts (auto) 14.6 H Absolute Nucleated RBC 0.000 Nucleated RBC % (auto) 0.0 Smear Tech's Comments VERIFIED D-Dimer High Sensitivty Sodium 133 L Potassium 3.6 Chloride 97 Carbon Dioxide 27 Anion Gap 13 BUN 16 Creatinine 0.76 Estim Creat Clear Calc 121.2 Estimated GFR > 60 Random Glucose 113 Lactic Acid Calcium 8.6 Total Bilirubin 1.0 Direct Bilirubin 0.5 AST 29 ALT 44 H Alkaline Phosphatase 70 Total Creatine Kinase 101 C-Reactive Protein 5.67 H Total Protein 6.9 Albumin 3.8 Lipase 51 Procalcitonin Urine Color Urine Appearance Urine pH Ur Specific [place] Urine Protein Urine Glucose (UA) Urine Ketones Urine Blood Urine Nitrite Ur Leukocyte Esterase T.pallidum Ab (EIA) COVID-19 (JORGE A) Negative COVID-19 Clin Com See Note 02/03/22 02/03/22 02/03/22 22:23 22:23 22:23 WBC RBC Hgb Hct MCV MCH MCHC RDW Plt Count MPV Immature Gran % (Auto) Neut % (Auto) Lymph % (Auto) [place] % (Auto) Eos % (Auto) Baso % (Auto) Lymph # (Auto) [place] # (Auto) Eos # (Auto) Baso # (Auto) Abs Immat Gran (auto) Absolute Neuts (auto) Absolute Nucleated RBC Nucleated RBC % (auto) Smear Tech's Comments D-Dimer High Sensitivty < 150 Sodium Potassium Chloride Carbon Dioxide Anion Gap BUN Creatinine Estim Creat Clear Calc Estimated GFR Random Glucose Lactic Acid 1.1 Calcium Total Bilirubin Direct Bilirubin AST ALT Alkaline Phosphatase Total Creatine Kinase C-Reactive Protein Total Protein Albumin Lipase Procalcitonin Urine Color Urine Appearance Urine pH Ur Specific [place] Urine Protein Urine Glucose (UA) Urine Ketones Urine Blood Urine Nitrite Ur Leukocyte Esterase T.pallidum Ab (EIA) Nonreactive COVID-19 (JORGE A) COVID-19 Clin Com 02/03/22 02/04/22 02/04/22 22:23 05:34 07:36 WBC 18.0 H RBC 4.11 L Hgb 12.3 L Hct 36.7 L MCV 89.3 MCH 29.9 MCHC 33.5 RDW 12.5 Plt Count 316 MPV 9.3 L Immature Gran % (Auto) 0.5 H Neut % (Auto) 76.7 H Lymph % (Auto) 14.3 L [place] % (Auto) 8.1 Eos % (Auto) 0.2 Baso % (Auto) 0.2 Lymph # (Auto) 2.6 [place] # (Auto) 1.5 H Eos # (Auto) 0.0 Baso # (Auto) 0.0 Abs Immat Gran (auto) 0.09 H Absolute Neuts (auto) 13.8 H Absolute Nucleated RBC 0.000 Nucleated RBC % (auto) 0.0 Smear Tech's Comments D-Dimer High Sensitivty Sodium Potassium Chloride Carbon Dioxide Anion Gap BUN Creatinine Estim Creat Clear Calc Estimated GFR Random Glucose Lactic Acid Calcium Total Bilirubin Direct Bilirubin AST ALT Alkaline Phosphatase Total Creatine Kinase C-Reactive Protein Total Protein Albumin Lipase Procalcitonin 0.16 Urine Color YELLOW Urine Appearance CLEAR Urine pH 7.0 Ur Specific [place] 1.010 Urine Protein NEG Urine Glucose (UA) NEG Urine Ketones NEG Urine Blood NEG Urine Nitrite NEG Ur Leukocyte Esterase NEG T.pallidum Ab (EIA) COVID-19 (JORGE A) COVID-19 Clin Com 02/04/22 07:36 WBC RBC Hgb Hct MCV MCH MCHC RDW Plt Count MPV Immature Gran % (Auto) Neut % (Auto) Lymph % (Auto) [place] % (Auto) Eos % (Auto) Baso % (Auto) Lymph # (Auto) [place] # (Auto) Eos # (Auto) Baso # (Auto) Abs Immat Gran (auto) Absolute Neuts (auto) Absolute Nucleated RBC Nucleated RBC % (auto) Smear Tech's Comments D-Dimer High Sensitivty Sodium 133 L Potassium 4.0 Chloride 101 Carbon Dioxide 25 Anion Gap 11 L BUN 13 Creatinine 0.71 Estim Creat Clear Calc 129.7 Estimated GFR > 60 Random Glucose 117 H Lactic Acid Calcium 8.4 Total Bilirubin Direct Bilirubin AST ALT Alkaline Phosphatase Total Creatine Kinase C-Reactive Protein Total Protein Albumin Lipase Procalcitonin Urine Color Urine Appearance Urine pH Ur Specific [place] Urine Protein Urine Glucose (UA) Urine Ketones Urine Blood Urine Nitrite Ur Leukocyte Esterase T.pallidum Ab (EIA) COVID-19 (JORGE A) COVID-19 Clin Com Imaging Radiology Impressions: ITS Impressions Extremity Ultrasound 02/03/22 15:11 IMPRESSION: No abscess seen. Chest X-Ray 02/03/22 22:35 IMPRESSION: Unremarkable examination. Femur CT 02/03/22 23:40 IMPRESSION: 1. No drainable collection or abscess formation. 2. No unexpected radiopaque foreign bodies or subcutaneous air. 3. No acute osseous fractures or malalignment. 4. No cortical disruption or erosive bony changes to suspect osteomyelitis. Mental Status Exam Mental Status Exam Patient Appearance: Unkempt Level of Consciousness: Drowsy Judgement: Fair Medications Medications Current Medications Acetaminophen (Acetaminophen 325 Mg Tablet) 650 mg PO Q6H PRN PRN Reason: Pain, Mild (Pain Scale 1-3) Clonidine HCl (Clonidine Hcl 0.1 Mg Tablet) 0.1 mg PO TID PRN; Protocol PRN Reason: withdrawal symptoms Docusate Sodium (Docusate Sodium 100 Mg Capsule) 100 mg PO DAILY PRN PRN Reason: Constipation Enoxaparin Sodium (Enoxaparin Sodium 40 Mg/0.4 Ml Syringe) 40 mg SUBCUT Q24H [facility] Last Admin: 02/04/22 01:37 Dose: Not Given Folic Acid (Folic Acid 1 Mg Tablet) 1 mg PO DAILY [facility] Last Admin: 02/04/22 10:16 Dose: 1 mg Cefazolin Sodium/Dextrose (Ancef) 2 gm in 50 mls @ 100 mls/hr IV Q8H [facility] Last Admin: 02/04/22 16:40 Dose: 100 mls/hr Lactated Ringer's (Lr) 1,000 mls @ 50 mls/hr IVCONT .Q20H [facility] Last Admin: 02/04/22 02:20 Dose: 50 mls/hr Vancomycin HCl 1,250 mg/ (Sodium Chloride) 250 mls @ 166.667 mls/hr IV Q12H [facility] Lorazepam (Lorazepam 1 Mg Tablet) 1 mg PO Q4H [facility]; Taper Stop: 02/08/22 03:14 Last Admin: 02/04/22 16:39 Dose: 1 mg Lorazepam (Lorazepam 1 Mg Tablet) 1 mg PO Q4H PRN PRN Reason: Breakthrough alcohol withdrawa Stop: 02/08/22 00:58 Ondansetron HCl (Ondansetron Hcl 4 Mg/2 Ml Vial) 4 mg IVPUSH Q8H PRN PRN Reason: Nausea and Vomiting Pharmacy Consult (Consult Rx Vancomycin Dosing) 1 each MISCELLANE DAILY PRN PRN Reason: Consult order Sodium Chloride (0.9 % Sodium Chloride Flush 3 Ml Syringe) 3 ml IVFLUSH QSHIFT [facility] Last Admin: 02/04/22 10:16 Dose: 3 ml Thiamine HCl (Thiamine Hcl 100 Mg Tablet) 100 mg PO DAILY [facility] Last Admin: 02/04/22 10:16 Dose: 100 mg Allergies Allergies Allergy/AdvReac Type Severity Reaction Status Date / Time No Known Allergies Allergy Verified 09/14/21 09:02 [No Known Allergies*] Assessment & Plan Assessment & Plan (1) Opioid withdrawal: Status: Acute Code(s): F11.93 - Opioid use, unspecified with withdrawal Assessment and Plan: based on patients very recent start of opioid use, unclear if he will require more methadone overnight for sx. If necessary, can receive another 5mg for withdrawal sx comfort medications already ordered 15mg methadone AM and reassess ongoing plan--including ATS admission (if cultures negative) or transition to suboxone I spent ___50___ minutes with the patient and/or on the patient floor today, greater than?50% of which was spent counseling/coordinating care. PMFSH Past Medical History Medical History (Updated 02/04/22 @ 17:24 by Irene Oliveira CNP) IV drug abuse No known health problems Family History Family History (Updated 02/04/22 @ 05:38 by Kimberly Rodriguez MD) Other No family history of coronary artery disease Surgical History Surgical History (Updated 02/04/22 @ 05:38 by Kimberly Rodriguez MD) No pertinent past surgical history Social History Social History Alcohol intake: current Alcohol intake frequency: 3 or more drinks per day Alcohol type: hard liquor Patient Tobacco Use Status: Current everyday Tobacco user Substance Use Type: Amphetamines, Crack/Cocaine, Heroin and IV Drugs service: No Current occupational status: unemployed
[2022-02-04 20:00] VITALS: BP 124/88; PULSE 83; RESP 20; TEMP 37.1; O2SAT 95
[2022-02-04 23:53] VITALS: BP 110/57; PULSE 64; RESP 17; TEMP 37.6; O2SAT 99
[2022-02-05] MEDS: vancomycin HCL 1,250 MG in 0.9 % Sodium Chloride 250 ML 166.67 MG IV (01:00)
[2022-02-05] MEDS: ceFAZolin Sodium/Dextrose,Iso 2 GM/50 ML PIGGYBACK IV ×2 (02:48→09:25)
[2022-02-05] MEDS: LORazepam 1 MG TABLET PO ×2 (02:49→07:36)
[2022-02-05 04:00] VITALS: BP 100/59; PULSE 71; RESP 17; TEMP 37.2; O2SAT 98
[2022-02-05 06:27] LABS: Hematocrit 36.4 % (42.0-52.0); Hemoglobin 12.1 g/dl (14.0-18.0); Mean Corpuscular HGB Conc 33.2 g/dl (31.0-36.0); Mean Corpuscular Hemoglobin 30.1 pg (27.0-33.0); Mean Corpuscular Volume 90.5 fL (80.0-98.0); Mean Platelet Volume 9.9 fL (9.4-12.4); Platelet Count 308 X10*3/uL (160-400); Red Blood Count 4.02 X10*6/uL (4.60-5.80); Red Cell Distribution Width 12.4 % (11.0-16.0); White Blood Count 14.9 X10*3/uL (4.8-10.8)
[2022-02-05 06:48] LABS: Anion Gap 10 (12-20); Blood Urea Nitrogen 8 mg/dL (9-16); Calcium 8.2 mg/dL (8.4-10.2); Carbon Dioxide 25 mmol/L (22-29); Chloride 102 mmol/L (96-108); Creatinine Clr Calc Pharmacy 129.7; Estimated Glomerular Filt Rate > 60; Glucose Random 99 mg/dL (60-115); Potassium 4.2 mmol/L (3.3-5.1); Sodium 133 mmol/L (135-145)
[2022-02-05] MEDS: Folic Acid 1 MG TABLET PO (07:36)
[2022-02-05] MEDS: Thiamine HCL 100 MG TABLET PO (07:36)
[2022-02-05] MEDS: methADONE HCl 20 MG/2 ML ORAL.CONC 15 MG PO (07:37)
[2022-02-05 11:23] VITALS: BP 125/71; PULSE 79; RESP 16; TEMP 37.3; O2SAT 100
--- NOTE | 2022-02-05 11:25 | HO.PM.IMPN ---
Subjective Subjective Date of Service: 02/05/22 Interval History: the patient was seen and evaluated this morning Laying in bed, feels mild improvement since yesterday Psy pain has improved with decreased erythema Denies any fever, chills or shortness of breath No reported other overnight events. Systemic review: No fever, chills or weakness No chest pain, palpitation No shortness of breath or coughing No abdominal pain, nausea or vomiting No urinary symptoms Left thigh rash and pain Physical Exam Vital Signs: Vital Signs: Last Vital Signs Temp 98.9 F 02/05/22 04:00 Pulse 71 02/05/22 04:00 Resp 17 02/05/22 04:00 BP 100/59 L 02/05/22 04:00 Pulse Ox 98 02/05/22 04:00 O2 Del Method 02/05/22 04:00 BMI result Body Mass Index 17.9 Const: Other: Constitutional : Alert, oriented, not in distress Neck : Normal inspection, Supple Cardiovascular : RRR, no JVP, no lower extremity edema Respiratory : fair bilateral air entry, no crackles, wheezes or rhonchi Gastrointestinal: soft, lax, Normal bowel sounds, Non tender Skin : Warm, Dry, poor hygiene, left lower thigh erythema tenderness with palpation Neurological : Alert & oriented x3, No focal deficit , CN 2-12 within normal Objective Data Active Medications Acetaminophen (Acetaminophen 325 Mg Tablet) 650 mg PO Q6H PRN PRN Reason: Pain, Mild (Pain Scale 1-3) Clonidine HCl (Clonidine Hcl 0.1 Mg Tablet) 0.1 mg PO TID PRN; Protocol PRN Reason: withdrawal symptoms Docusate Sodium (Docusate Sodium 100 Mg Capsule) 100 mg PO DAILY PRN PRN Reason: Constipation Enoxaparin Sodium (Enoxaparin Sodium 40 Mg/0.4 Ml Syringe) 40 mg SUBCUT Q24H [facility] Last Admin: 02/05/22 02:22 Dose: Not Given Documented By: ANTHNOY Non-Admin Reason: Patient Refused Folic Acid (Folic Acid 1 Mg Tablet) 1 mg PO DAILY [facility] Last Admin: 02/05/22 07:36 Dose: 1 mg Documented By: JOSIAS Cefazolin Sodium/Dextrose (Ancef) 2 gm in 50 mls @ 100 mls/hr IV Q8H [facility] Last Admin: 02/05/22 09:25 Dose: 100 mls/hr Documented By: JOSIAS Lactated Ringer's (Lr) 1,000 mls @ 50 mls/hr IVCONT .Q20H [facility] Last Admin: 02/04/22 22:06 Dose: 50 mls/hr Documented By: COLOEula Vancomycin HCl 1,250 mg/ (Sodium Chloride) 250 mls @ 166.667 mls/hr IV Q12H [facility] Last Infusion: 02/05/22 02:53 Dose: 0 mls/hr Documented By: ANTHONY Lorazepam (Lorazepam 1 Mg Tablet) 1 mg PO Q6H [facility]; Taper Stop: 02/08/22 03:14 Last Admin: 02/05/22 07:36 Dose: 1 mg Documented By: JOSIAS Lorazepam (Lorazepam 1 Mg Tablet) 1 mg PO Q4H PRN PRN Reason: Breakthrough alcohol withdrawa Stop: 02/08/22 00:58 Ondansetron HCl (Ondansetron Hcl 4 Mg/2 Ml Vial) 4 mg IVPUSH Q8H PRN PRN Reason: Nausea and Vomiting Pharmacy Consult (Consult Rx Vancomycin Dosing) 1 each MISCELLANE DAILY PRN PRN Reason: Consult order Sodium Chloride (0.9 % Sodium Chloride Flush 3 Ml Syringe) 3 ml IVFLUSH QSHIFT [facility] Last Admin: 02/05/22 07:40 Dose: Not Given Documented By: JOSIAS Non-Admin Reason: No Access Thiamine HCl (Thiamine Hcl 100 Mg Tablet) 100 mg PO DAILY [facility] Last Admin: 02/05/22 07:36 Dose: 100 mg Documented By: JOSIAS Labs CBC & Chem 7: 02/05/22 05:15 02/05/22 05:15 Labs: Laboratory Results - last 24 hr 02/05/22 02/05/22 02/05/22 05:15 05:15 05:15 MCV 90.5 MCH 30.1 MCHC 33.2 RDW 12.4 Plt Count 308 MPV 9.9 Absolute Nucleated RBC 0.000 Nucleated RBC % (auto) 0.0 Anion Gap 10 L Estim Creat Clear Calc Cancelled 129.7 Estimated GFR Cancelled > 60 Random Glucose 99 Calcium 8.2 L Microbiology Microbiology Results: Microbiology 02/03/22 22:23 Blood Culture - Final Blood - Venous Bacillus species 02/03/22 22:13 Blood Culture - Preliminary Blood - Venous No growth after 24 hours. Assessment and Plan (1) Opioid withdrawal: Status: Acute (2) Cellulitis: Status: Acute (3) Sepsis: Status: Acute (4) Polysubstance use disorder: Status: Acute Plan 21-year-old male with past medical history of IV drug use who presents to the hospital with complaints of left swollen leg found to have sepsis sepsis, resolved secondary to cellulitis 1 set of blood cultures positive for Gram-positive rods, likely contaminant, pending final sensitivity continue IV vancomycin and cefazolin pending ID evaluation history of substance abuse , alcohol and IVDU continue phenobarb folic acid and thiamine clonidine p.r.n. for withdrawal symptoms addiction team input appreciated , start 50 mg methadone in the morning and possible ATS admission DVT prophylaxis: Lovenox Given his history of IV drug use, and evidence of sepsis, patient will require Overnight hospital stay for further management to prevent decompensation into severe sepsis Quality Stroke Does the patient have a stroke diagnosis?: No VTE Prior VTE?: No VTE Risk Level:: Medical - moderate - high VTE Device Contraindication: Treatment Not Indicated VTE Drug Contraindication: N/A - Med Ordered
[2022-02-05 11:57] VITALS: BMI 19.0
[2022-02-05] MEDS: vancomycin HCL 1,250 MG in 0.9 % Sodium Chloride 250 ML 166.37 MG IV (12:02)
--- NOTE | 2022-02-05 13:54 | PM.EVENT ---
Event Note Date of Service: 02/05/22 Event Note: Discharge summary Discharge diagnosis Sepsis, cellulitis Opioid withdrawal and abuse The patient was admitted for treatment of left thigh cellulitis. Found to be septic on admission. Blood cultures growing g positive rods which could be contaminant but not finalized yet. Treated with IV antibiotics of vancomycin and Zosyn. He decided to leave the hospital against medical advice. I explained to him that oral antibiotics might not be the best for his current condition as culture still pending but he insisted on leaving. Will Prescribed doxycycline and Ceftin and explained to him the need to come back to the emergency if he feels sick at any point.
--- NOTE | 2022-02-05 15:08 | HO.ADDICTPRO ---
Subjective Subjective Date of Service: 02/05/22 Reason For Visit: cellulitis Interim History: Patient seen in follow-up this morning with recovery support nurse. Patient lying in bed, awake but with eyes closed. Required redirection by this writer producer as he was repeatedly asking to order his lunch and expressing his frustration with not being able to do so in that very moment. This writer producer attempted to gather additional history regarding substance use, patient minimally participating. Review of Systems Constitutional: Reports as per HPI Mental Status Exam Mental Status Exam Patient Appearance: Unkempt Level of Consciousness: Awake Mood Description: Blunted (irritable ) Judgement: Fair Diagnostics Vital Signs (24Hr): Vital Signs - 24 hr 02/04/22 16:00 02/04/22 20:00 02/04/22 23:53 Temperature 98.7 F 98.8 F 99.6 F Pulse Rate 75 83 64 Respiratory Rate 18 20 17 Blood Pressure 108/55 L 124/88 110/57 L Pulse Oximetry 96 95 99 Oxygen Delivery Method Room Air Room Air Room Air 02/05/22 04:00 02/05/22 11:23 Temperature 98.9 F 99.1 F Pulse Rate 71 79 Respiratory Rate 17 16 Blood Pressure 100/59 L 125/71 Pulse Oximetry 98 100 Oxygen Delivery Method Room Air Room Air BMI result Body Mass Index 19.0 Labs Results: 02/05/22 05:15 02/05/22 05:15 Labs: Laboratory Results - last 48 hr 02/03/22 02/03/22 02/03/22 22:13 22:23 22:23 WBC 20.9 H RBC 4.26 L Hgb 13.0 L Hct 37.6 L MCV 88.3 MCH 30.5 MCHC 34.6 RDW 12.3 Plt Count 338 MPV 9.3 L Immature Gran % (Auto) 0.5 H Neut % (Auto) 69.7 Lymph % (Auto) 21.9 [place] % (Auto) 7.7 Eos % (Auto) 0.0 Baso % (Auto) 0.2 Lymph # (Auto) 4.6 [place] # (Auto) 1.6 H Eos # (Auto) 0.0 Baso # (Auto) 0.0 Abs Immat Gran (auto) 0.11 H Absolute Neuts (auto) 14.6 H Absolute Nucleated RBC 0.000 Nucleated RBC % (auto) 0.0 Smear Tech's Comments VERIFIED D-Dimer High Sensitivty Sodium 133 L Potassium 3.6 Chloride 97 Carbon Dioxide 27 Anion Gap 13 BUN 16 Creatinine 0.76 Estim Creat Clear Calc 121.2 Estimated GFR > 60 Random Glucose 113 Lactic Acid Calcium 8.6 Total Bilirubin 1.0 Direct Bilirubin 0.5 AST 29 ALT 44 H Alkaline Phosphatase 70 Total Creatine Kinase 101 C-Reactive Protein 5.67 H Total Protein 6.9 Albumin 3.8 Lipase 51 Procalcitonin Urine Color Urine Appearance Urine pH Ur Specific [place] Urine Protein Urine Glucose (UA) Urine Ketones Urine Blood Urine Nitrite Ur Leukocyte Esterase T.pallidum Ab (EIA) COVID-19 (JORGE A) Negative COVID-19 ncyclo Com See Note 02/03/22 02/03/22 02/03/22 22:23 22:23 22:23 WBC RBC Hgb Hct MCV MCH MCHC RDW Plt Count MPV Immature Gran % (Auto) Neut % (Auto) Lymph % (Auto) [place] % (Auto) Eos % (Auto) Baso % (Auto) Lymph # (Auto) [place] # (Auto) Eos # (Auto) Baso # (Auto) Abs Immat Gran (auto) Absolute Neuts (auto) Absolute Nucleated RBC Nucleated RBC % (auto) Smear Tech's Comments D-Dimer High Sensitivty < 150 Sodium Potassium Chloride Carbon Dioxide Anion Gap BUN Creatinine Estim Creat Clear Calc Estimated GFR Random Glucose Lactic Acid 1.1 Calcium Total Bilirubin Direct Bilirubin AST ALT Alkaline Phosphatase Total Creatine Kinase C-Reactive Protein Total Protein Albumin Lipase Procalcitonin Urine Color Urine Appearance Urine pH Ur Specific [place] Urine Protein Urine Glucose (UA) Urine Ketones Urine Blood Urine Nitrite Ur Leukocyte Esterase T.pallidum Ab (EIA) Nonreactive COVID-19 (JORGE A) COVID-19 [employer] 02/03/22 02/04/22 02/04/22 22:23 05:34 07:36 WBC 18.0 H RBC 4.11 L Hgb 12.3 L Hct 36.7 L MCV 89.3 MCH 29.9 MCHC 33.5 RDW 12.5 Plt Count 316 MPV 9.3 L Immature Gran % (Auto) 0.5 H Neut % (Auto) 76.7 H Lymph % (Auto) 14.3 L [place] % (Auto) 8.1 Eos % (Auto) 0.2 Baso % (Auto) 0.2 Lymph # (Auto) 2.6 [place] # (Auto) 1.5 H Eos # (Auto) 0.0 Baso # (Auto) 0.0 Abs Immat Gran (auto) 0.09 H Absolute Neuts (auto) 13.8 H Absolute Nucleated RBC 0.000 Nucleated RBC % (auto) 0.0 Smear Tech's Comments D-Dimer High Sensitivty Sodium Potassium Chloride Carbon Dioxide Anion Gap BUN Creatinine Estim Creat Clear Calc Estimated GFR Random Glucose Lactic Acid Calcium Total Bilirubin Direct Bilirubin AST ALT Alkaline Phosphatase Total Creatine Kinase C-Reactive Protein Total Protein Albumin Lipase Procalcitonin 0.16 Urine Color YELLOW Urine Appearance CLEAR Urine pH 7.0 Ur Specific [place] 1.010 Urine Protein NEG Urine Glucose (UA) NEG Urine Ketones NEG Urine Blood NEG Urine Nitrite NEG Ur Leukocyte Esterase NEG T.pallidum Ab (EIA) COVID-19 (JORGE A) COVID-[place] 02/04/22 02/05/22 02/05/22 07:36 05:15 05:15 WBC 14.9 H RBC 4.02 L Hgb 12.1 L Hct 36.4 L MCV 90.5 MCH 30.1 MCHC 33.2 RDW 12.4 Plt Count 308 MPV 9.9 Immature Gran % (Auto) Neut % (Auto) Lymph % (Auto) [place] % (Auto) Eos % (Auto) Baso % (Auto) Lymph # (Auto) [place] # (Auto) Eos # (Auto) Baso # (Auto) Abs Immat Gran (auto) Absolute Neuts (auto) Absolute Nucleated RBC 0.000 Nucleated RBC % (auto) 0.0 Smear Tech's Comments D-Dimer High Sensitivty Sodium 133 L Potassium 4.0 Chloride 101 Carbon Dioxide 25 Anion Gap 11 L BUN 13 Creatinine 0.71 Cancelled Estim Creat Clear Calc 129.7 Cancelled Estimated GFR > 60 Cancelled Random Glucose 117 H Lactic Acid Calcium 8.4 Total Bilirubin Direct Bilirubin AST ALT Alkaline Phosphatase Total Creatine Kinase C-Reactive Protein Total Protein Albumin Lipase Procalcitonin Urine Color Urine Appearance Urine pH Ur Specific [place] Urine Protein Urine Glucose (UA) Urine Ketones Urine Blood Urine Nitrite Ur Leukocyte Esterase T.pallidum Ab (EIA) COVID-19 (JORGE A) COVID-19 [employer] 02/05/22 05:15 WBC RBC Hgb Hct MCV MCH MCHC RDW Plt Count MPV Immature Gran % (Auto) Neut % (Auto) Lymph % (Auto) [place] % (Auto) Eos % (Auto) Baso % (Auto) Lymph # (Auto) [place] # (Auto) Eos # (Auto) Baso # (Auto) Abs Immat Gran (auto) Absolute Neuts (auto) Absolute Nucleated RBC Nucleated RBC % (auto) Smear Tech's Comments D-Dimer High Sensitivty Sodium 133 L Potassium 4.2 Chloride 102 Carbon Dioxide 25 Anion Gap 10 L BUN 8 L Creatinine 0.71 Estim Creat Clear Calc 129.7 Estimated GFR > 60 Random Glucose 99 Lactic Acid Calcium 8.2 L Total Bilirubin Direct Bilirubin AST ALT Alkaline Phosphatase Total Creatine Kinase C-Reactive Protein Total Protein Albumin Lipase Procalcitonin Urine Color Urine Appearance Urine pH Ur Specific [place] Urine Protein Urine Glucose (UA) Urine Ketones Urine Blood Urine Nitrite Ur Leukocyte Esterase T.pallidum Ab (EIA) COVID-19 (JORGE A) COVID-19 Clin Com Imaging Radiology Impressions: ITS Impressions Extremity Ultrasound 02/03/22 15:11 IMPRESSION: No abscess seen. Chest X-Ray 02/03/22 22:35 IMPRESSION: Unremarkable examination. Femur CT 02/03/22 23:40 IMPRESSION: 1. No drainable collection or abscess formation. 2. No unexpected radiopaque foreign bodies or subcutaneous air. 3. No acute osseous fractures or malalignment. 4. No cortical disruption or erosive bony changes to suspect osteomyelitis. Medications Allergies Allergies Allergy/AdvReac Type Severity Reaction Status Date / Time No Known Allergies Allergy Verified 09/14/21 09:02 [No Known Allergies*] Assessment & Plan Assessment & Plan (1) Opioid withdrawal: Status: Acute Code(s): F11.93 - Opioid use, unspecified with withdrawal Assessment and Plan: at time of documentation, patient had self initiated discharge no follow up indicated I spent ___15___ minutes with the patient and/or on the patient floor today, greater than?50% of which was spent counseling/coordinating care.
== END 2022-02-05 14:06 | disposition left against medical advice (07) | DRG 720 ==
LOC: HO.ED 02-04 00:48 → HO.EDOVER 02-04 01:17 → HO.S3 02-04 11:59
PROVIDERS: Physician Assistant Medical; Admitting Provider Internal Medicine; Emergency Provider Student in an Organized Health Care Education/Training Program; PCP Internal Medicine; Visit Provider Student in an Organized Health Care Education/Training Program
DX: A41.9 Sepsis, unspecified organism (principal); L03.116 Cellulitis of left lower limb; D72.829 Elevated white blood cell count, unspecified; F10.10 Alcohol abuse, uncomplicated; F11.13 Opioid abuse with withdrawal; Z20.822 Contact with and (suspected) exposure to COVID-19; Z86.19 Personal history of other infectious and parasitic diseases
CPT/HCPCS: 36415; 71045; 73701; 76882; 80048; 80076; 81003; 82550; 83605; 83690; 84145; 85025; 85027; 85379; 86140; 86780; 87040; 87635; 96365; 99285; J0690; J2543; J3370; Q9967

== ENCOUNTER 2023-10-31 23:07 | Emergency (ER) | payer OTHER, SELFPAY ==
[2023-10-31 23:34] VITALS: BP 111/64; PULSE 79; RESP 18; TEMP 37; O2SAT 95; BMI 21.3
[2023-11-01 00:08] VITALS: BP 124/58; PULSE 63; RESP 16; O2SAT 96
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
--- OUTSIDE RECORDS SUMMARY | 2023-11-01 00:45 | XMS_ITS | Continuity of Care Document ---
Author Organization [facility] Address [address] [place] [address]- Care Team Providers Care Sales Representative Health Insurance Name Role Phone Not on Staff, PCP Primary Care Physician Unavail able [place] [facility] [place] - 02/07/[address] [address]- Encounter Diagnosis Cellulitis of leg(Final) - 02/06/22 Heroin abuse(Final) - 02/06/22 IV drug abuse(Final) - 02/06/22 Discharge Disposition: A-D/C AMA Attending Physician: Agnes Ross MD Admitting Physician: Farrah Corbin DO Referring Physician: Not on Staff, Referring MD Allergies, Adverse Reactions, Alerts No Known Allergies Medications cephalexin monohydrate 500 mg oral capsule 1 capsule = 500 mg, By Mouth, 4 times a day, for 7 days, # 28 capsule, 0 Refills, Acute 02/14/22 12:23:00 EDT, 02/07/22 12:23:00 EDT, Capsule, [id number], Partial fill upon patient request if the prescription is for a schedule II opio... Start Date: 02/07/22 Stop Date: 02/14/22 Status: Ordered Results Radiology Reports * Exam Date Time Procedure Performing Provider Status 02/06/22 10:57 PM Chest Portable Prem De Jesus; Auth (V erified) Notes: (Chest Portable) Reason For Exam: Fever RESULT: Chest Portable Chest Portable INDICATION: C O n v s p heroin use tonight. A O x 4. Reason: Fever; Clinical Question(s): Pneumonia COMPARISON: None. FINDINGS: LINES AND TUBES: None. LUNGS AND PLEURA: Clear lungs. Normal pulmonary vascularity. No pleural effusion. No pneumothorax. HEART, MEDIASTINUM AND FABRIZIO: Heart is normal in size. Normal upper mediastinal and hilar contour. BONES AND SOFT TISSUES: No acute abnormality. IMPRESSION: No acute abnormality. I have personally reviewed the images and I agree with this report. WSN: [id number] Ordering Physician: Jenny Cool Dictated By: Edith Ramos DO Dictated Date/Time: 02/06/22 11:14 p Reviewed By: Daniel Delarosa MD Signed By: Daniel Delarosa MD Signed Date/Time: 02/06/22 11:19 pm Transcribed By: SLICK Transcribed Date/Time: 02/06/22 11:13 pm Vital Signs Most recent to oldest [Reference Range]: 1 2 3 Height 175 cm (02/07/22 7:40 AM) 175 cm (02/06/22 8:08 PM) Weight 45 kg (02/06/22 8:08 PM) Oxygen Saturation [94-100 %] 98 % (02/07/22 11:00 AM) 99 % (02/07/22 7:40 AM) 98 % (02/07/22 4:00 AM) Pulse Rate [55-90 bpm] 54 bpm *L* (02/07/22 11:00 AM) 62 bpm (02/07/22 7:40 AM) 71 bpm (02/07/22 4:00 AM) Blood Pressure [90-138/55-84 mm Hg] 92/51mm Hg (02/07/22 11:00 AM) 90/45mm Hg (02/07/22 7:40 AM) 101/57mm Hg (02/07/22 4:00 AM) Respiratory Rate [16-30 br/min] 18 br/min (02/07/22 11:00 AM) 18 br/min (02/07/22 7:40 AM) 16 br/min (02/07/22 4:00 AM) Temperature [96.8-100.4 DegF] 97.5 DegF (02/07/22 11:00 AM) 97.5 DegF (02/07/22 7:40 AM) 98.8 DegF (02/07/22 4:00 AM) Mode of Delivery (Oxygen) Room air (02/07/22 11:00 AM) Room air (02/07/22 7:40 AM) Room air (02/07/22 4:00 AM) Blood pressure sites Arm, right (02/07/22 11:00 AM) Arm, right (02/07/22 7:40 AM) Arm, right (02/07/22 4:00 AM) Temperature Route Oral (02/07/22 11:00 AM) Oral (02/07/22 7:40 AM) Oral (02/07/22 4:00 AM) Dry Weight 45 kg (02/06/22 8:08 PM) Social History Social History Type Response Smoking Status 5-9 cigarettes (betw een 1/4 to 1/2 pack)/day in last 30 days; Other: Unclear how many cigs a day as patient rolls own tobacco; entered on: 02/07/22 Sex
--- OUTSIDE RECORDS SUMMARY | 2023-11-01 00:45 | XMS_ITS | Continuity of Care Document ---
Author Organization [facility] ter Address [address] [place] [address]- Care Team Providers Care Construction Safety Consultant Name Role Phone Not on Staff, PCP Primary Care Physician Unavail able Encounter [facility] [place] Date(s): 02/10/22 - 02/12/[address] [address]- Encounter Diagnosis Bacteremia(Final) - 02/10/22 Substance abuse(Final) - 02/10/22 Alcohol abuse(Final) - 02/10/22 Discharge Disposition: A-D/C Home Attending Physician: Bull Cheney MD Admitting Physician: Mae Duran MD Referring Physician: Not on Staff, Referring MD Allergies, Adverse Reactions, Alerts No Known Allergies Medications acamprosate 333 mg oral delayed release tablet 2 tablet = 666 mg, By Mouth, 3 times a day, # 180 tablet, 0 Refills, Maintenance, 02/12/22 10:35:00EDT, CR Tablet, [facility], Partial fill upon patient request if the prescription is for a schedule II opioid drug., 175, cm, 02/12/22 8:... Start Date: 02/12/22 Status: Ordered cephalexin monohydrate 500 mg oral capsule 1 capsule = 500 mg, By Mouth, 4 times a day, for 4 days, # 16 capsule, 0 Refills, Acute 02/16/22 10:27:00 EDT, 02/12/22 10:27:00 EDT, Capsule, [facility], Partial fill upon patient request if the prescription is for a schedule II opioid... Start Date: 02/12/22 Stop Date: 02/16/22 Status: Ordered folic acid 1 mg oral tablet 1 mg, 1, tablet, By Mouth, Daily, # 30 tablet, Refills 0, Tot. Refills 0, Maintenance, 02/12/22 10:27:00 EDT, Route to Pharmacy Electronically, [facility], Partial fill upon patient request if the prescription is for a schedule II opioid... Start Date: 02/12/22 Status: Ordered methadone 10 mg oral tablet 40 mg, Tablet, By Mouth, 02/12/22 9:00:00 EDT Start Date: 02/12/22 Stop Date: 02/12/22 Status: Completed Nicotine 2 mg gum = 2 mg, Chew, Every hour, PRN Other, Nicotine Cravings, # 40 each, 0 Refills, Maintenance, 02/12/2210:28:00 EDT, Gum, [facility], Partial fill upon patient request if the prescription is for a schedule II opioid drug., 175, cm, 02/12/22... Start Date: 02/12/22 Status: Ordered thiamine 100 mg oral tablet 100 mg, 1, tablet, By Mouth, 2 times a day, # 30 tablet, Refills 0, Tot. Refills 0, Maintenance, 02/12/22 10:28:00 EDT, Route to Pharmacy Electronically, [facility], Partial fill upon patient request if the prescription is for a schedule... Start Date: 02/12/22 Status: Ordered Problem List Condition Effective Dates Status Health Status Inform ant Underweight(Confirmed) Active Results Orders for Microbiology Reports Name Date Blood Culture 02/10/22 Blood Culture #2 02/10/22 Microbiology Reports TEST:Blood Culture, Second Order STATUS:Unauthenticated BODY SITE: SOURCE:Blood COLLECTED DATE/TIME:02/10/22 12:05 PM Blood Culture, Second Order SPECIMEN DESCRIPTION : BLOOD R HAND SPECIAL REQUESTS : NONE CULTURE : NO GROWTH AFTER 48 HOURS REPORT STATUS : PRELIMINARY REPORT TEST:Blood Culture STATUS:Unauthenticated BODY SITE: SOURCE:Blood COLLECTED DATE/TIME:02/10/22 11:57 AM Blood Culture SPECIMEN DESCRIPTION : BLOOD L HAND SPECIAL REQUESTS : NONE CULTURE : NO GROWTH AFTER 48 HOURS REPORT STATUS : PRELIMINARY REPORT Vital Signs Most recent to oldest [Reference Range]: 1 2 3 Height 175 cm (02/12/22 8:41 AM) 175 cm (02/12/22 4:04 AM) 175 cm (02/11/22 7:48 PM) Weight 56 kg (02/10/22 11:45 PM) Oxygen Saturation [94-100 %] 100 % (02/12/22 8:41 AM) 99 % (02/12/22 4:04 AM) 99 % (02/11/22 7:48 PM) Pulse Rate [55-90 bpm] 57 bpm (02/12/22 8:41 AM) 50 bpm *L* (02/12/22 4:04 AM) 48 bpm *L* (02/11/22 7:48 PM) Body Mass Index [18.5-24.99] 18.29 *L* (02/10/22 11:45 PM) Blood Pressure [90-138/55-84 mm Hg] 107/70mm Hg (02/12/22 8:41 AM) 100/56mm Hg (02/12/22 4:04 AM) 101/58mm Hg (02/11/22 7:48 PM) Respiratory Rate [16-30 br/min] 18 br/min (02/12/22 9:28 AM) 18 br/min (02/12/22 8:41 AM) 16 br/min (02/12/22 4:04 AM) Temperature [96.8-100.4 DegF] 98.5 DegF (02/12/22 8:41 AM) 98.4 DegF (02/12/22 4:04 AM) 98.2 DegF (02/11/22 7:48 PM) Liters per Minute 0 L/min (02/10/22 11:45 PM) Mode of Delivery (Oxygen) Room air (02/12/22 8:41 AM) Room air (02/11/22 7:48 PM) Room air (02/11/22 6:37 AM) Blood pressure sites Arm, right (02/12/22 8:41 AM) Arm, right (02/12/22 4:04 AM) Arm, left (02/11/22 7:48 PM) Temperature Route Temporal (02/12/22 8:41 AM) Temporal (02/12/22 4:04 AM) Temporal (02/11/22 7:48 PM) Dry Weight 59 kg (02/10/22 11:45 PM) Weight Obtained Via Bed scale (02/10/22 11:45 PM) Dry Weight Obtained Via Patient/family s tated (02/10/22 11:45 PM) Social History Social History Type Response Smoking Status 5-9 cigarettes (betw een 1/4 to 1/2 pack)/day in last 30 days; Interested in cessation: No; Patient wants NRT during admission Yes entered on: 02/11/22 Sex
[2023-11-01 00:52] VITALS: BP 124/58; PULSE 63; RESP 16; TEMP 37; O2SAT 96
== END 2023-11-01 00:53 | disposition home or self-care (01) ==
PROVIDERS: Emergency Provider Emergency Medicine; PCP Internal Medicine
DX: H57.12 Ocular pain, left eye (principal)
CPT/HCPCS: 99283

== ENCOUNTER 2024-04-30 00:44 | Emergency (ER) | payer OTHER, SELFPAY ==
[2024-04-30 00:47] VITALS: BP 119/83; PULSE 69; RESP 16; TEMP 36.9; O2SAT 100; BMI 19.2
--- NOTE | 2024-04-30 01:43 | PC.NURSE ---
pt not in waiting room
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
== END 2024-04-30 02:31 | disposition left against medical advice (07) ==
PROVIDERS: Emergency Provider Emergency Medicine
DX: K04.7 Periapical abscess without sinus (principal); Z53.21 Procedure and treatment not carried out due to patient leaving prior to being seen by health care provider
CPT/HCPCS: 99281

== ENCOUNTER 2024-06-11 02:30 | Emergency (ER) | payer OTHER, SELFPAY ==
[2024-06-11] VITALS (7 sets, daily range): BP systolic 100–130; BP diastolic 54–84; PULSE 51–97; RESP 15–20; TEMP 35.5–36.8; O2SAT 98–100; BMI 18.0
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
[2024-06-11] MEDS: LORazepam 1 MG TABLET PO (07:53)
== END 2024-06-11 08:52 | disposition home or self-care (01) ==
PROVIDERS: Emergency Provider Emergency Medicine
DX: F19.10 Other psychoactive substance abuse, uncomplicated (principal); T68.XXXA Hypothermia, initial encounter; X31.XXXA Exposure to excessive natural cold, initial encounter; Z59.00 Homelessness unspecified
CPT/HCPCS: 99283; 99284

== ENCOUNTER 2024-07-15 20:55 | Emergency (ER) | payer OTHER, SELFPAY ==
[2024-07-15 21:01] VITALS: BP 144/81; PULSE 136; RESP 20; TEMP 37.3; O2SAT 97; BMI 18.3
[2024-07-15 21:58] LABS: MANUAL DIFF FLAG NO
[2024-07-15 21:59] LABS: Basophils Percent Auto 0.3 % (0-2); Eosinophils Percent Auto 0.3 % (0-4); Hematocrit 35.6 % (42.0-52.0); Hemoglobin 12.2 g/dl (14.0-18.0); Imm Gran Abs Auto 0.06 X10*3/uL (0.00-0.03); Imm Gran Pct Auto 0.5 % (0.0-0.4); Lymphocytes Absolute Auto 1.3 X10*3/uL (1.2-4.9); Lymphocytes Percent Auto 10.5 % (20-40); Mean Corpuscular HGB Conc 34.3 g/dl (31.0-36.0); Mean Corpuscular Hemoglobin 29.7 pg (27.0-33.0); Mean Corpuscular Volume 86.6 fL (80.0-98.0); Mean Platelet Volume 9.2 fL (9.4-12.4); Monocytes Absolute Auto 0.4 X10*3/uL (0.1-1.2); Monocytes Percent Auto 3.2 % (2-11); Neutrophils Absolute Auto 10.2 x10*3/uL (2.0-8.3); Neutrophils Percent Auto 85.2 % (45-73); Platelet Count 279 X10*3/uL (160-400); Red Blood Count 4.11 X10*6/uL (4.60-5.80); Red Cell Distribution Width 12.8 % (11.0-16.0); White Blood Count 11.9 X10*3/uL (4.8-10.8)
[2024-07-15 22:20] LABS: Lactic Acid 0.9 mmol/L (0.5-2.0)
[2024-07-15 22:28] LABS: Alanine Aminotransferase 30 U/L (0-40); Albumin Level 4.2 g/dL (3.5-5.0); Alkaline Phosphatase 62 U/L (39-117); Anion Gap 10 (12-20); Aspartate Amino Transferase 34 U/L (5-37); Bilirubin Total 0.8 mg/dL (0.0-1.0); Blood Urea Nitrogen 17 mg/dL (9-16); Carbon Dioxide 27 mmol/L (22-29); Chloride 102 mmol/L (96-108); Creatinine Clr Calc Pharmacy 133.9; Estimated Glomerular Filt Rate > 60; Ethanol < 10 mg/dL; Glucose Random 102 mg/dL (60-115); Potassium 3.3 mmol/L (3.3-5.1); Sodium 136 mmol/L (135-145)
[2024-07-16 00:09] VITALS: BP 112/70; PULSE 94; RESP 18; TEMP 37.3; O2SAT 100
[2024-07-16 03:32] VITALS: BP 119/58; PULSE 89; RESP 16; TEMP 36.7; O2SAT 98
[2024-07-16 03:51] LABS: Amphetamine Screen Urine Not Detected (Not Detect); Barbiturates, Urine Not Detected (Not Detect); Benzodiazepines Screen Urine Not Detected (Not Detect); Buprenorphine Scr Not Detected (Not Detect); Cannabinoid Screen Urine POSITIVE (Not Detect); Cocaine Screen Urine POSITIVE (Not Detect); Fentanyl, urine POSITIVE (Not Detect); Methadone Screen, Urine Not Detected (Not Detect); Opiate Screen Urine POSITIVE (Not Detect); Oxycodone Screen Urine Not Detected (Not Detect); Phencyclidine Screen Urine Not Detected (Not Detect)
--- NOTE | 2024-07-16 04:21 | PC.NURSE ---
pt seeking drug detox. denies SI/HI. pt changed over into hospital attire and belongings taken to [facility]. pt denies frequent ETOH use, only on occasion. pt appears very unkept and disheveled, reports living on the streets. pt very calm and cooperative with all care at this time
[2024-07-16 06:00] VITALS: BP 124/72; PULSE 79; RESP 16; TEMP 36.7; O2SAT 99
--- NOTE | 2024-07-16 06:00 | PC.NURSE ---
pt reporting he is feeling like he is starting to withdrawal. runny dao, teary eyes, back pain, anxious. pt said multiple times, i really want to stay today, i dont want to leave when i get uncomfortable again
--- NOTE | 2024-07-16 06:25 | PC.NURSE ---
pt requesting reading material specifically a bible. bible given to pt from the POD
--- NOTE | 2024-07-16 07:43 | PC.NURSE ---
drenched in sweat. requesting methadone. Provider Gayatri approached.
--- NOTE | 2024-07-16 07:47 | ED_ITS ---
HPI - General Adult General Chief complaint: ETOH/Substance Use Stated complaint: seeking detox Time Seen by Provider: 07/16/24 07:44 Source: patient Limitations: no limitations History of Present Illness HPI narrative: This is a a 23 years old the patient presented to the emergency department requesting detox he has history of polysubstance abuse including heroin and cocaine. He denies SI and HI is currently homeless. Onset (ago): day(s) (1) Radiation: non-radiation Severity: mild Quality: burning Related Data Previous Rx's ?Medication ?Instructions ?Recorded cefuroxime axetil 500 mg tablet 500 mg PO BID #10 tabs 02/05/22 doxycycline monohydrate 100 mg 100 mg PO BID #10 caps 02/05/22 capsule tobramycin 0.3 % eye drops 2 drp ophthalmic (eye) Q4H #5 mL 11/01/23 Allergies Allergy/AdvReac Type Severity Reaction Status Date / Time No Known Allergies Allergy Verified 07/15/24 21:04 [No Known Allergies*] Review of Systems 2 Constitutional: Constitutional: Reports no additional constitutional complaints ENT: Reports system reviewed and no additional complaints, except as documented Gastrointestinal: Gastrointestinal: Reports no additional gastrointestinal complaints [facility] Past Medical History Attestation statement: The following information was validated with the patient. [facility] Narrative: Polysubstance abuse Source: unable to obtain Medical History IV drug abuse No known health problems Surgical History No pertinent past surgical history Family History Family History Other No family history of coronary artery disease Social History Social History Alcohol intake: current Alcohol intake frequency: a few times a month Alcohol type: hard liquor Patient Tobacco Use Status: Current everyday Tobacco user Use of substances other than those prescribed or required for medical reasons: Yes Substance Use Type: Crack/Cocaine, Heroin, Marijuana and Opiates Substance Use Frequency: Daily Last Used Substance: Hours (ago) Advance Directives: No Advance Directives Information Provided: Yes Do you have a plan to hurt others: No Plan service: No Current occupational status: unemployed Physical Exam ED Vital Signs: Vital Signs - 24 hr 07/15/24 21:01 07/16/24 00:09 07/16/24 03:32 Temperature 99.2 F 99.2 F 98.1 F Pulse Rate 136 H 94 89 Respiratory Rate 20 18 16 Blood Pressure 144/81 H 112/70 119/58 L Pulse Oximetry 97 100 98 Oxygen Delivery Method Room Air Room Air Room Air 07/16/24 06:00 07/16/24 08:12 07/16/24 09:35 Temperature 98.0 F 89.3 F L Pulse Rate 79 80 Respiratory Rate 16 16 Blood Pressure 124/72 124/72 124/72 Pulse Oximetry 99 Oxygen Delivery Method Room Air BMI result Body Mass Index 18.3 Const General: cooperative Orientation/consciousness: patient oriented x3 Limitations: no limitations HENMT Head: Yes normal to inspection Ears: hearing grossly normal bilaterally General nose exam: Normal external nose present Face and sinus: Yes normal facial exam Neck Neck: Yes normal visual inspection and Yes full ROM Thyroid: Thyroid normal Chest Chest palpation & inspection: normal inspection of the chest Resp Effort & Inspection: normal respiratory effort Auscultation: clear to auscultation bilaterally Cardio Jugular venous distension: no JVD Rate: regular rate Rhythm: regular rhythm GI Inspection: Yes normal to inspection Palpation (GI): Soft to palpation, not firm and nontender General: Yes no CVA tenderness Back/Spine/Pelvis Back: no CVA tenderness Skin General skin exam: no rashes or lesions noted Lesions: no lesions Rashes: no rashes Neuro General: patient oriented x3 Cranial nerves: Yes CN's II-XII intact bilaterally Course Reevaluation(s) Reevaluation #1: Patient does not want to wait for chemical recovery operator, patient requests discharge Time: 09:14 Medications Administered Discontinued Medications Generic Name Dose Route Start Last Admin Trade Name Jose PRN Reason Stop Dose Admin Clonidine HCl 0.1 mg 07/16/24 07:46 07/16/24 08:12 Clonidine Hcl 0.1 Mg Tablet PO 07/16/24 07:47 0.1 mg ONCE ONE Administration Protocol Lorazepam 1 mg 07/16/24 07:46 07/16/24 08:13 Lorazepam 1 Mg Tablet PO 07/16/24 07:47 1 mg ONCE ONE Administration Ondansetron HCl 4 mg 07/16/24 07:46 07/16/24 08:13 Ondansetron Odt 4 Mg Tab.[place] TRANSLINGU 07/16/24 07:47 4 mg ONCE ONE Administration Medical Decision Making Medical Decision Making [facility] Narrative: Patient presented to emergency department with a chief complaint of substance abuse requesting detox we will go ahead and consult care team Differential Diagnosis Differential Diagnoses: The differential diagnosis associated with the presentation includes Opioid withdrawal/anxiety depression Lab Data 07/15/24 21:50 07/15/24 21:50 Labs: Lab Results 07/15/24 07/16/24 Range/Units 21:50 03:35 WBC 11.9 H (4.8-10.8) X10*3/uL RBC 4.11 L (4.60-5.80) X10*6/uL Hgb 12.2 L (14.0-18.0) g/dl Hct 35.6 L (42.0-52.0) % MCV 86.6 (80.0-98.0) fL MCH 29.7 (27.0-33.0) pg MCHC 34.3 (31.0-36.0) g/dl RDW 12.8 (11.0-16.0) % Plt Count 279 (160-400) X10*3/uL MPV 9.2 L (9.4-12.4) fL Immature Gran % (Auto) 0.5 H (0.0-0.4) % Neut % (Auto) 85.2 H (45-73) % Lymph % (Auto) 10.5 L (20-40) % [place] % (Auto) 3.2 (2-11) % Eos % (Auto) 0.3 (0-4) % Baso % (Auto) 0.3 (0-2) % Lymph # (Auto) 1.3 (1.2-4.9) X10*3/uL [place] # (Auto) 0.4 (0.1-1.2) X10*3/uL Eos # (Auto) 0.0 (0.0-0.4) X10*3/uL Baso # (Auto) 0.0 (0.0-0.2) X10*3/uL Abs Immat Gran (auto) 0.06 H (0.00-0.03) X10*3/uL Absolute Neuts (auto) 10.2 H (2.0-8.3) x10*3/uL Absolute Nucleated RBC 0.000 (0.0-0.012) X10*3/uL Nucleated RBC % (auto) 0.0 (0.0-0.2) /100WBC Sodium 136 (135-145) mmol/L Potassium 3.3 (3.3-5.1) mmol/L Chloride 102 (96-108) mmol/L Carbon Dioxide 27 (22-29) mmol/L Anion Gap 10 L (12-20) BUN 17 H (9-16) mg/dL Creatinine 0.67 (0.5-1.4) mg/dL Estim Creat Clear Calc 133.9 Estimated GFR > 60 Random Glucose 102 (60-115) mg/dL Lactic Acid 0.9 (0.5-2.0) mmol/L Calcium 9.0 D (8.4-10.2) mg/dL Total Bilirubin 0.8 (0.0-1.0) mg/dL AST 34 (5-37) U/L ALT 30 (0-40) U/L Alkaline Phosphatase 62 (39-117) U/L Total Protein 8.0 (6.5-8.0) g/dL Albumin 4.2 (3.5-5.0) g/dL Urine Opiates Screen POSITIVE H (Not Detect) Ur Buprenorphine Scrn Not Detected (Not Detect) ng/mL Ur Oxycodone Screen Not Detected (Not Detect) ng/mL Urine Methadone Screen Not Detected (Not Detect) ng/mL Urine Fentanyl Screen POSITIVE H (Not Detect) Ur Barbiturates Screen Not Detected (Not Detect) Ur Phencyclidine Scrn Not Detected (Not Detect) Ur Amphetamines Screen Not Detected (Not Detect) U Benzodiazepines Scrn Not Detected (Not Detect) Urine Cocaine Screen POSITIVE H (Not Detect) U Marijuana (THC) Screen POSITIVE H (Not Detect) Ethyl Alcohol < 10 mg/dL Discharge Plan Discharge Clinical Impression: Polysubstance use disorder Patient Disposition: Home, Self-Care Instructions: Polysubstance Abuse (ED) Additional Instructions: Follow-up with your primary care physician, return if you feeling worse, tried to call detox Prescriptions: No Action doxycycline monohydrate 100 mg capsule 100 mg PO BID Qty: 10 0RF cefuroxime axetil 500 mg tablet 500 mg PO BID Qty: 10 0RF tobramycin 0.3 % drops 2 drp ophthalmic (eye) Q4H Qty: 5 0RF Referrals: Physician,Unknown J [Primary Care Provider] - 2 days Interventions: ED Discharge Assessment Last Done: 07/16/24 09:35 Discharge Date/Time: 07/16/24 09:37 Print Language: Latvian
[2024-07-16 08:12] VITALS: BP 124/72
[2024-07-16] MEDS: cloNIDine HCL 0.1 MG TABLET PO (08:12)
[2024-07-16] MEDS: LORazepam 1 MG TABLET PO (08:13)
[2024-07-16] MEDS: Ondansetron ODT 4 MG TAB.RAPDIS TRANSLINGU (08:13)
[2024-07-16 09:35] VITALS: BP 124/72; PULSE 80; RESP 16; TEMP 31.8
== END 2024-07-16 09:37 | disposition home or self-care (01) ==
PROVIDERS: Emergency Provider Emergency Medicine
DX: F19.10 Other psychoactive substance abuse, uncomplicated (principal); Z59.00 Homelessness unspecified; Z79.899 Other long term (current) drug therapy
CPT/HCPCS: 36415; 80053; 80307; 83605; 85025; 99284